=== PATIENT | male | born 1975 | race Caucasian/White ===

== ENCOUNTER 2018-03-15 17:32 | Emergency (ER) | payer OTHER ==
[~2018-03-15] VITALS: Ht 175.3 cm; Wt 93.0 kg
--- NOTE | 2018-03-15 18:03 | NUR ---
42 Y/O MALE PLACED IN BED 2 C/O CHEST PAIN. PT [facility].
--- NOTE | 2018-03-15 18:18 | NUR ---
PT SEEN BY . H/L 20G PLACED LEFT A/C. BLOOD OBTAINED AND SENT.
[2018-03-15] MEDS ORDERED: LORAZEPAM INJ 2 MG/ML VIAL ONE (18:20)
[2018-03-15] MEDS ORDERED: NITROGLYCERIN 0.4 MG/TAB BOTTLE ONE (18:22)
[2018-03-15 18:24] LABS: BASOPHILS # (AUTO) 0.1 /CMM (0.0-0.2); BASOPHILS % (AUTO) 1.5 % (0.0-2.0); HEMATOCRIT 38 % (39-51); HEMOGLOBIN 12.4 g/dL (13.5-17.5); LYMPHOCYTES # (AUTO) 3.2 /CMM (0.8-4.8); LYMPHOCYTES % (AUTO) 38.8 % (20.0-44.0); MEAN CORPUSCULAR HGB CONC 33 g/dl (31.0-36.0); MEAN CORPUSCULAR VOLUME 91 fL (80-96); MONOCYTES # (AUTO) 0.6 /CMM (0.1-1.30); MONOCYTES % (AUTO) 6.9 % (2.0-12.0); NEUTROPHILS # (AUTO) 3.8 /CMM (1.8-8.9); NEUTROPHILS % (AUTO) 45.8 % (43.0-81.0); PLATELET COUNT (AUTO) 316 /CMM (150-450); RDW COEFFICIENT OF VARIATION 14.2 (11.5-15.0); RED BLOOD CELL COUNT(AUTO) 4.19 MIL/uL (4.5-6.0); WHITE BLOOD COUNT (AUTO) 8.3 K/uL (4.3-11.0)
--- NOTE | 2018-03-15 18:26 | NUR ---
PT MEDICATED WITH NITRO AND ATIVAN
[2018-03-15] MEDS ORDERED: LORAZEPAM INJ 2 MG/ML VIAL IV ONE ×2 (18:30→20:30)
[2018-03-15] MEDS ORDERED: NITROGLYCERIN 0.4 MG/TAB BOTTLE SL ONE (18:30)
[2018-03-15 18:35] LABS: CALCIUM, SERUM 8.9 mg/dL (8.5-10.1); CARBON DIOXIDE 28 mmol/L (21-32); CHLORIDE 105 mmol/L (98-107); GLUCOSE 111 mg/dL (74-106); POTASSIUM 3.7 mmol/L (3.5-5.1); SODIUM SERUM 141 mmol/L (136-145); UREA NITROGEN, BLOOD 17 mg/dL (7-18)
[2018-03-15 18:43] LABS: INR 0.86 (0.87-1.13)
[2018-03-15 18:44] LABS: TROPONIN I < 0.017 ng/mL (0.00-0.056)
--- NOTE | 2018-03-15 18:59 | NUR ---
PT REQUESTING MORE PAIN MEDICATION - MORPHINE - AND ATIVAN FOR HIS BACK AND CHEST PAIN.
--- NOTE | 2018-03-15 19:10 | NUR ---
RECEIVED REPORT FROM REINALDO HERRERA FOR [facility]. PT RESTING IN BED WITH NO S/S OF ACUTE DISTRESS NTOED. WILL CONTINUE TO MONITOR PT.
[2018-03-15] MEDS ORDERED: BUSP10TA3 PO (19:13)
[2018-03-15] MEDS ORDERED: FOLI1TAB16 PO (19:13)
[2018-03-15] MEDS ORDERED: MULT1TAB73 PO (19:13)
[2018-03-15] MEDS ORDERED: GABA600T2 PO (19:13)
[2018-03-15] MEDS ORDERED: PHEN60TA11 PO (19:13)
[2018-03-15] MEDS ORDERED: CLON0.1T PO (19:13)
[2018-03-15] MEDS ORDERED: LORA-259 PO (19:13)
[2018-03-15] MEDS ORDERED: ONDA8TAB6 PO (19:13)
[2018-03-15] MEDS ORDERED: BUPR1FIL3 SL (19:13)
[2018-03-15] MEDS ORDERED: METF-440 PO (19:13)
[2018-03-15] MEDS ORDERED: TRAZ-214 PO (19:13)
[2018-03-15] MEDS ORDERED: METH750T4 PO (19:13)
[2018-03-15] MEDS ORDERED: THIA100T13 PO (19:13)
--- NOTE | 2018-03-15 20:10 | NUR ---
PT STATES CP 01/09. MADE AWARE. PT RESTING IN BED WITH HIS PHONE IN HAND. NO S/S OF ACUTE DISTRESS NOTED
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
--- NOTE | 2018-03-15 20:25 | NUR ---
SOUNDSCRIBER MECHANIC TATIANA BEDSIDE WITH PT. SECURITY BEDSIDE WITH PT.
[2018-03-15] MEDS ORDERED: HYDROCODONE/APAP 5/325MG 1 EACH TABLET PO ONE (20:30)
--- NOTE | 2018-03-15 20:33 | NUR ---
PT STATED HE WANTED TO LEAVE AMA. PT SEEN WALKING OUT OF ER AFTER SPEAKING WITH QUARTZ MOUNTER TATIANA. PER QUARTZ MOUNTER TATIA[place], PT REMOVED HIS IV PRIOR TO WALKING OUT OF THE ED.
--- NOTE | 2018-03-15 20:36 | NUR ---
Patient eloped from facility. ER MD notified.
[2018-03-15 20:38] VITALS: BP 163/104
== END 2018-03-15 20:39 | disposition left against medical advice (07) ==
LOC: ER 17:37
DX: R07.89 Other chest pain (principal); I10 Essential (primary) hypertension; E11.9 Type 2 diabetes mellitus without complications; Z90.49 Acquired absence of other specified parts of digestive tract; Z88.0 Allergy status to penicillin; Z88.6 Allergy status to analgesic agent
CPT/HCPCS: 36415; 71045; 80048; 84484; 85025; 85730; 87081; 93005 ×2; 96374; 99285; A4606; J2060; Z7610